=== PATIENT | male | born 1965 | race American Indian/Alaskan Native ===

== ENCOUNTER 2021-03-02 14:01 | Emergency (ER) | payer SELFPAY ==
[2021-03-02 15:17] VITALS: BP 166/94
[2021-03-02] MEDS ORDERED: KETOROLAC 60 MG/2 ML INJ IM ONE (15:41)
[2021-03-02] MEDS ORDERED: dexAMETHasone 4 MG/ML VIAL IM ONE (15:41)
--- NOTE | 2021-03-02 15:46 | Emergency Department Report ---
ED Extremity Problem HPI - General Chief complaint: Extremity Problem,Nontraumatic Stated complaint: RIGHT FOOT PAIN Time Seen by Provider: 03/02/21 15:25 Source: patient Mode of arrival: Ambulatory Limitations: No Limitations - History of Present Illness Initial comments: Patient is a 55-year-old male presents emergency room with complaints of right foot and ankle pain that began 3 days ago. He denies any fall or injury. Patient states that he works in [employer] and is on his feet all day and he walks on different terrains. He denies any numbness or weakness. He denies ever having this in the past. Patient denies any past medical history. No allergies to medications. - Related Data Previous Rx's Medication Instructions Recorded Last Taken Type Colchicine 0.6 mg PO DAILY 1 Days #3 tablet 03/02/21 Unknown Rx Indomethacin 50 mg PO Q8H #21 capsule 03/02/21 Unknown Rx predniSONE [Deltasone] 40 mg PO QDAY 5 Days #10 tab 03/02/21 Unknown Rx Allergies Allergy/AdvReac Type Severity Reaction Status Date / Time No Known Allergies Allergy Unverified 03/02/21 15:11 ED Review of Systems ROS: Stated complaint: RIGHT FOOT PAIN Other details as noted in HPI Comment: All other systems reviewed and negative ED Past Medical Hx - Past Medical History Previous Medical History?: No - Surgical History Past Surgical History?: No - Medications Home Medications: Home Medications Medication Instructions Recorded Confirmed Last Taken Type Colchicine 0.6 mg PO DAILY 1 Days #3 tablet 03/02/21 Unknown Rx Indomethacin 50 mg PO Q8H #21 capsule 03/02/21 Unknown Rx predniSONE [Deltasone] 40 mg PO QDAY 5 Days #10 tab 03/02/21 Unknown Rx ED Physical Exam - General Limitations: No Limitations General appearance: alert, in no apparent distress - Head Head exam: Present: atraumatic, normocephalic - Eye Eye exam: Present: normal appearance - ENT ENT exam: Present: mucous membranes moist - Extremities Exam Extremities exam: Present: other (mild edema present to the right ankle, ttp overlying the achiles tendon, mild increased warmth, no skin changes or erythema, FROM of the RLE, mild discomfort dorsiflexion, neurovascularly intact) - Neurological Exam Neurological exam: Present: alert, oriented X3 - Psychiatric Psychiatric exam: Present: normal affect, normal mood - Skin Skin exam: Present: warm, dry, intact ED Course Vital Signs 03/02/21 03/02/21 15:16 15:50 Temperature 98.5 F Pulse Rate 98 H Respiratory 18 17 Rate Blood Pressure 166/94 O2 Sat by Pulse 97 Oximetry ED Medical Decision Making - Medical Decision Making Patient is a 55-year-old male presents emergency room with complaints of right foot and ankle pain that began 3 days ago. He denies any fall or injury. Patient states that he works in [employer] and is on his feet all day and he walks on different terrains. He denies any numbness or weakness. He denies ever having this in the past. Patient denies any past medical history. No allergies to medications. vss. on exam:mild edema present to the right ankle, ttp overlying the achiles tendon, mild increased warmth, no skin changes or erythema, FROM of the RLE, mild discomfort dorsiflexion, neurovascularly intact. Examination appears consistent with Achilles tendinitis and possible gouty arthritis. he has had no acute trauma. No signs of cellulitis or septic joint. Patient given medications while in the emergency department with improvement of symptoms. Patient given prescription for medications. Discussed the importance of outpatient follow-up for reexamination. Discussed return precautions. Advised patient Please take medication as prescribed. Follow-up with a orthopedic doctor. Return to emergency room for any new or worsening symptoms. Critical care attestation.: If time is entered above; I have spent that time in minutes in the direct care of this critically ill patient, excluding procedure time. ED Disposition Clinical Impression: Right foot pain Right ankle pain Qualifiers: Chronicity: acute Qualified Code(s): M25.571 - Pain in right ankle and joints of right foot Disposition: 01 HOME / SELF CARE / HOMELESS Is pt being admited?: No Does the pt Need Aspirin: No Condition: Stable Instructions: Arthritis, Achilles Tendinitis Additional Instructions: Please take medication as prescribed. Follow-up with a orthopedic doctor. Return to emergency room for any new or worsening symptoms. Prescriptions: Colchicine 0.6 mg PO DAILY 1 Days #3 tablet predniSONE [Deltasone] 40 mg PO QDAY 5 Days #10 tab Indomethacin 50 mg PO Q8H #21 capsule Referrals: HARSHA ROMANO MD [Staff Physician] - 3-5 Days [facility] [Provider Group] - 3-5 Days Forms: Work/School Release Form(ED) Time of Disposition: 15:45 Print Language: [place]
== END 2021-03-02 16:46 | disposition home or self-care (01) ==
LOC: ED 14:01
DX: M25.571 Pain in right ankle and joints of right foot (principal)
CPT/HCPCS: 96372; 99281; J1100; J1885